=== PATIENT | female | born 1945 | race Caucasian/White ===

== ENCOUNTER → 2016-05-21 | Outpatient (CLI) | payer MEDICARE ==
--- NOTE | 2016-05-21 13:31 | ECHOS ---
DATE OF SERVICE: 05/21/2016 AGE: 71Y SEX: F HT: 64" WT: 160 lbs. Protocol Rey: Others: Stage: Dur. of Exercise: 7 minutes *Heart Rate Blood Pressure *Rest: 70 Rest: 124/75 * *Max. Achieved: 144 Maximum BP: 171/63 85% PMHR: 127 100% PMHR: 149 *METS: 8.5 mets INDICATIONS: Synthroid. MEDICATIONS: Chest pain. Precious Srinivasan is a 71-year-old female. Requested by Dr. David Salcido. Clinical Information: History of chest pain, shortness of breath, palpitations, for the last few weeks. Patient also has a history of polycythemia. Has not seen Dr. Peterson for some time with hemoglobin of 18. Resting ECG shows sinus rhythm, rate of 70 beats per minute, AR interval 0.16, QRS 0.08, normal ST-T waves. Utilizing a standard Rey protocol, a symptom limited treadmill test was performed. Patient exercised for total of 7 minutes, attained a peak heart rate of 144 beats per minute which is approximately 97% predicted maximum heart rate without any chest pain or pressure, but there was a 1-1/2 to 2 mm ( ) ST segment depression in the inferolateral leads highly suggestive of stress induced ischemia. Patient also has a questionable ( ) intraventricular septum parasternal view and in two chamber view, basal inferior to mid inferior ( ) rate mildly slightly hypokinetic compared to baseline studies. In view of borderline EKG changes and symptoms, the patient was given nitroglycerin tablets to try sublingually for pressure, advised to contact Dr. David Salcido and also advised to see Dr. Peterson for treatment of polycythemia, which may be aggravating her symptoms. ASSESSMENT: 1. Questionable borderline ( ) study involving the hypo( ) intraventricular septum and basal inferior wall, mid inferior wall and two chamber view. Associated with 1.[address]-T segment depression at peak exertion. Clinical correlation suggested. 2. Patient did not report any symptoms throughout the study. The patient has good cardiopulmonary fitness as indicated by VO2 and METs. Patient attained peak metabolic activity equivalent to 8 METs.
--- NOTE | 2016-05-21 13:35 | LTR ---
May 21, 2016 RE: Precious Srinivasan Dear Dr. David Salcido: As you recall, Precious Srinivasan has been having exertional symptoms for the last few weeks, chest heaviness and tightness, suggestive of exertional angina, as you recall, patient also has a polycythemia, though has not been treated recently by Dr. Peterson, advised to see Dr. Peterson, which may be aggravating her symptoms. The patient has borderline stress echocardiogram with 1-1/[address] segment depression in the inferolateral leads suggestive of angina without any symptoms. Clinical correlation is suggested if the patient's symptoms improved with nitroglycerin and no recurrence of symptoms after she has been treated for polycythemia ( ) Dr. Peterson, continue on medical therapy. Otherwise, may need to consider further cardiac work-up as you see fit. If you have any questions please do not hesitate to call or contact us. Sincerely, KESHAV CAMACHO MD
== END | disposition home or self-care (01) ==
LOC: RADNMMAIN 09:33
PROVIDERS: ATTEND Family Medicine
DX: R07.9 Chest pain, unspecified (principal); I10 Essential (primary) hypertension
CPT/HCPCS: 93017; 93350

== ENCOUNTER → 2016-06-09 | Outpatient (CLI) | payer MEDICARE ==
[2016-06-09 16:22] LABS: CH 30.2; CHCM 31.9; HGB 17.9 gm/dL (11.4-16.0); MCH 30.4 pg (25.0-35.0); MCV 95.1 fL (80.0-100.0); Mean Platelet Volume 6.7; RBC 5.89 m/uL (3.80-5.40); WBC 5.9 k/uL (3.8-10.6)
[2016-06-09 16:37] LABS: Calcium 9.7 mg/dL (8.4-10.2)
== END | disposition home or self-care (01) ==
LOC: LABWHC1 15:42
PROVIDERS: ATTEND Internal Medicine Interventional Cardiology
DX: I25.10 Atherosclerotic heart disease of native coronary artery without angina pectoris (principal)
CPT/HCPCS: 36415; 80048; 85027

== ENCOUNTER 2016-07-01 12:17 | Inpatient (IN) | payer MEDICARE ==
[2016-07-01] MEDS ORDERED: NITROGLYCERIN OINT 1 INCH/GM PACKET TOPICAL STA (12:56)
[2016-07-01] MEDS ORDERED: ASPIRIN 81 MG CHEW PO STA (12:56)
--- NOTE | 2016-07-01 12:59 | ED ---
General Adult HPI - General Chief complaint: Chest Pain Stated complaint: Chest Pain Time Seen by Provider: 07/01/16 12:30 Source: patient, RN notes reviewed Mode of arrival: ambulatory Limitations: no limitations - History of Present Illness Initial comments: This is a 71-year-old female who presents emergency Department complaining of chest pain. Patient states she was scheduled for a stress test in June 17 was unable to do a because her got sick. Patient states today at about 8:00 she had chest pain last about a half an hour and then returned on her way to the hospital that also lasted about half an hour. Patient states pain radiated to the left side of her neck. Patient denies any difficulty breathing or shortness of breath per patient denies any episodes of diaphoresis. Patient states she was nauseated however. Patient denies any vomiting. Patient denies abdominal pain patient denies any recent fever or chills or cough. Patient denies headache patient denies lightheadedness patient denies dizziness or near syncopal episode. Currently patient has no pain - Related Data Home Medications Medication Instructions Recorded Confirmed Aspirin [Adult Low Dose Aspirin EC] 162 mg PO HS 06/14/16 07/01/16 Atorvastatin [Lipitor] 20 mg PO HS 06/14/16 07/01/16 Levothyroxine Sodium [Synthroid] 25 mcg PO DAILY 06/14/16 07/01/16 Nitroglycerin Sl Tabs [Nitrostat] 0.4 mg PO Q5M PRN 06/14/16 07/01/16 Allergies Allergy/AdvReac Type Severity Reaction Status Date / Time chlordiazepoxide Allergy "made me Verified 07/01/16 14:07 [From Librium] very hyper" Sulfa (Sulfonamide Allergy Rash/Hives Verified 07/01/16 14:07 Antibiotics) Penicillins AdvReac Diarrhea Verified 07/01/16 14:07 Review of Systems ROS Statement: Those systems with pertinent positive or pertinent negative responses have been documented in the HPI. ROS Other: All systems not noted in ROS Statement are negative. Past Medical History Past Medical History: Thyroid Disorder Additional Past Medical History / Comment(s): polycythemia syrcuse History of Any Multi-Drug Resistant Organisms: None Reported Past Surgical History: Appendectomy Past Psychological History: No Psychological Hx Reported Smoking Status: Former smoker Past Alcohol Use History: None Reported Past Drug Use History: None Reported General Exam - General Exam Comments Initial Comments: GENERAL: Patient is well-developed and well-nourished. Patient is nontoxic and well- hydrated and is in no acute distress. ENT: Neck is soft and supple. No significant lymphadenopathy is noted. Oropharynx is clear. Moist mucous membranes. Neck has full range of motion without eliciting any pain. EYES: The sclera were anicteric and conjunctiva were pink and moist. Extraocular movements were intact and pupils were equal round and reactive to light. Eyelids were unremarkable. PULMONARY: Unlabored respirations. Good breath sounds bilaterally. No audible rales rhonchi or wheezing was noted. CARDIOVASCULAR: There is a regular rate and rhythm without any murmurs gallops or rubs. ABDOMEN: Soft and nontender with normal bowel sounds. No palpable organomegaly was noted. There is no palpable pulsatile mass. SKIN: Skin is clear with no lesions or rashes and otherwise unremarkable. NEUROLOGIC: Patient is alert and oriented x3. Cranial nerves II through XII are grossly intact. Motor and sensory are also intact. Normal speech, volume and content. Symmetrical smile. MUSCULOSKELETAL: Normal extremities with adequate strength and full range of motion. No lower extremity swelling or edema. No calf tenderness. LYMPHATICS: No significant lymphadenopathy is noted PSYCHIATRIC: Normal psychiatric evaluation. Normal interpersonal interactions appears functionally intact in deals appropriately with others. No signs of depression. No signs of anxiety. Limitations: no limitations Course Vital Signs 07/01/16 07/01/16 07/01/16 12:25 13:05 14:09 Temperature 98.4 F 98 F Pulse Rate 59 L 68 58 L Respiratory 20 18 20 Rate Blood Pressure 138/72 156/70 126/62 O2 Sat by Pulse 98 99 98 Oximetry Medical Decision Making - Medical Decision Making EKG shows sinus bradycardia 54 bpm. It was 144 QRS is 84 Q-T intervals 448 QTC is 424. Patient's EKG shows no ST segment elevation. Patient's chest x-ray is normal. Patient was chest pain-free throughout the ED stay however because of her previous stress test that was abnormal and they scheduled That she missed I started the patient heparin and admit the patient and I wrote admitting orders and consult to Dr. Gordon and consult cardiology. - Lab Data Result diagrams: 07/01/16 12:48 07/01/16 12:48 Lab Results 07/01/16 07/01/16 07/01/16 Range/Units 12:48 12:48 12:48 WBC 5.2 (3.8-10.6) k/uL RBC 5.82 H (3.80-5.40) m/uL Hgb 17.6 H (11.4-16.0) gm/dL Hct 54.1 H (34.0-46.0) % MCV 93.0 (80.0-100.0) fL MCH 30.2 (25.0-35.0) pg MCHC 32.5 (31.0-37.0) g/dL RDW 13.7 (11.5-15.5) % Plt Count 245 (150-450) k/uL Neutrophils % 60 % Lymphocytes % 28 % Monocytes % 6 % Eosinophils % 2 % Basophils % 1 % Neutrophils # 3.1 (1.3-7.7) k/uL Lymphocytes # 1.4 (1.0-4.8) k/uL Monocytes # 0.3 (0-1.0) k/uL Eosinophils # 0.1 (0-0.7) k/uL Basophils # 0.1 (0-0.2) k/uL PT (9.0-12.0) sec INR (<1.1) APTT (22.0-30.0) sec Sodium 144 (137-145) mmol/L Potassium 4.9 (3.5-5.1) mmol/L Chloride 109 H (98-107) mmol/L Carbon Dioxide 24 (22-30) mmol/L Anion Gap 11 mmol/L BUN 17 (7-17) mg/dL Creatinine 1.02 (0.52-1.04) mg/dL Est GFR (MDRD) Af Amer >60 (>60 ml/min/1.73 sqM) Est GFR (MDRD) Non-Af 53 (>60 ml/min/1.73 sqM) Glucose 88 (74-99) mg/dL Calcium 9.8 (8.4-10.2) mg/dL Magnesium 2.1 (1.6-2.3) mg/dL Total Bilirubin 0.9 (0.2-1.3) mg/dL AST 21 (14-36) U/L ALT 24 (9-52) U/L Alkaline Phosphatase 75 (38-126) U/L Total Creatine Kinase 60 (30-135) U/L CK-MB (CK-2) 0.3 (0.0-2.4) ng/mL CK-MB (CK-2) Rel Index 0.5 Troponin I <0.012 (0.000-0.034) ng/mL Total Protein 7.4 (6.3-8.2) g/dL Albumin 4.2 (3.5-5.0) g/dL 07/01/16 Range/Units 12:48 WBC (3.8-10.6) k/uL RBC (3.80-5.40) m/uL Hgb (11.4-16.0) gm/dL Hct (34.0-46.0) % MCV (80.0-100.0) fL MCH (25.0-35.0) pg MCHC (31.0-37.0) g/dL RDW (11.5-15.5) % Plt Count (150-450) k/uL Neutrophils % % Lymphocytes % % Monocytes % % Eosinophils % % Basophils % % Neutrophils # (1.3-7.7) k/uL Lymphocytes # (1.0-4.8) k/uL Monocytes # (0-1.0) k/uL Eosinophils # (0-0.7) k/uL Basophils # (0-0.2) k/uL PT 10.7 (9.0-12.0) sec INR 1.1 (<1.1) APTT 26.3 (22.0-30.0) sec Sodium (137-145) mmol/L Potassium (3.5-5.1) mmol/L Chloride (98-107) mmol/L Carbon Dioxide (22-30) mmol/L Anion Gap mmol/L BUN (7-17) mg/dL Creatinine (0.52-1.04) mg/dL Est GFR (MDRD) Af Amer (>60 ml/min/1.73 sqM) Est GFR (MDRD) Non-Af (>60 ml/min/1.73 sqM) Glucose (74-99) mg/dL Calcium (8.4-10.2) mg/dL Magnesium (1.6-2.3) mg/dL Total Bilirubin (0.2-1.3) mg/dL AST (14-36) U/L ALT (9-52) U/L Alkaline Phosphatase (38-126) U/L Total Creatine Kinase (30-135) U/L CK-MB (CK-2) (0.0-2.4) ng/mL CK-MB (CK-2) Rel Index Troponin I (0.000-0.034) ng/mL Total Protein (6.3-8.2) g/dL Albumin (3.5-5.0) g/dL Critical Care Time Critical Care Time: Yes Total Critical Care Time: 35 Disposition Clinical Impression: Unstable angina pectoris Disposition: ADMITTED IP TO THIS [facility] Time of Disposition: 14:41
[2016-07-01 13:07] LABS: Basophils # (A) 0.1 k/uL (0-0.2); Basophils % (A) 1 %; CH 30.3; CHCM 32.8; Eosinophils # (A) 0.1 k/uL (0-0.7); Eosinophils % (A) 2 %; HCT 54.1 % (34.0-46.0); HDW 2.45; HGB 17.6 gm/dL (11.4-16.0); Luc # (Auto) 0.13; Luc % (Auto) 3; Lymphocytes # (A) 1.4 k/uL (1.0-4.8); Lymphocytes % (A) 28 %; MCH 30.2 pg (25.0-35.0); MCHC 32.5 g/dL (31.0-37.0); Mean Platelet Volume 7.6; Monocytes # (A) 0.3 k/uL (0-1.0); Monocytes % (A) 6 %; Neutrophils # (A) 3.1 k/uL (1.3-7.7); Neutrophils % (A) 60 %; RBC 5.82 m/uL (3.80-5.40); RDW 13.7 % (11.5-15.5); WBC 5.2 k/uL (3.8-10.6); WBC (Perox) 5.16
[2016-07-01 13:16] LABS: INR 1.1 (<1.1); Partial Thromboplastin Time 26.3 sec (22.0-30.0); Prothrombin Time 10.7 sec (9.0-12.0)
[2016-07-01 13:17] LABS: ALT 24 U/L (9-52); AST 21 U/L (14-36); Alkaline Phosphatase 75 U/L (38-126); Anion Gap 11 mmol/L; Blood Urea Nitrogen 17 mg/dL (7-17); Calcium 9.8 mg/dL (8.4-10.2); Carbon Dioxide 24 mmol/L (22-30); Chloride 109 mmol/L (98-107); Glucose 88 mg/dL (74-99); Magnesium 2.1 mg/dL (1.6-2.3); Non-African American GFR(MDRD) 53 (>60 ml/min/1.73 sqM); Potassium 4.9 mmol/L (3.5-5.1); Sodium 144 mmol/L (137-145); Total Bilirubin 0.9 mg/dL (0.2-1.3); Total Protein 7.4 g/dL (6.3-8.2)
--- NOTE | 2016-07-01 13:20 | XR ---
EXAMINATION TYPE: XR chest 2V DATE OF EXAM: 07/01/2016 1:16 PM COMPARISON: None HISTORY: Shortness of breath TECHNIQUE: Frontal and lateral views of the chest are obtained. FINDINGS: Scattered senescent parenchymal changes noted. Hyperinflation compatible with COPD. No evidence for infiltrate. No evidence for atelectasis. Heart size is stable. Mediastinal structures are stable and grossly unremarkable. No evidence for hilar prominence. Degenerative changes dorsal spine. IMPRESSION: 1. No evidence for acute pulmonary disease.
[2016-07-01 13:30] LABS: Creatine Kinase 60 U/L (30-135)
[2016-07-01 13:42] LABS: Creatine Kinase MB 0.3 ng/mL (0.0-2.4); Troponin I <0.012 ng/mL (0.000-0.034)
[2016-07-01] MEDS ORDERED: HEPARIN SODIUM,PORCINE 5,000 UNIT/ML 1 ML VIAL IV ONE (14:10)
[2016-07-01] MEDS ORDERED: HEPARIN SODIUM,PORCINE/D5W PMX 25,000 UNIT in DEXTROSE/WATER 1 500ML.BAG IV SCH (14:15)
[2016-07-01] MEDS ORDERED: NITROGLYCERIN SL TABS 0.4 MG TAB SUBLINGUAL PRN (14:41)
[2016-07-01] MEDS: NITROGLYCERIN OINT 1 INCH/GM PACKET TOPICAL SCH ×2 (18:34→22:21)
[2016-07-01 19:55] LABS: Creatine Kinase 52 U/L (30-135)
[2016-07-01 20:08] LABS: Creatine Kinase MB 0.3 ng/mL (0.0-2.4); Troponin I <0.012 ng/mL (0.000-0.034)
[2016-07-02 00:48] LABS: Creatine Kinase 123 U/L (30-135)
[2016-07-02 00:59] LABS: Creatine Kinase MB 0.7 ng/mL (0.0-2.4); Troponin I <0.012 ng/mL (0.000-0.034)
[2016-07-02] MEDS: NITROGLYCERIN OINT 1 INCH/GM PACKET TOPICAL SCH (04:29)
[2016-07-02 06:49] LABS: Cholesterol 126 mg/dL (<200); HDL Cholesterol 48 mg/dL (40-60); Triglycerides 81 mg/dL (<150)
[2016-07-02] MEDS ORDERED: ALPRAZolam 0.5 MG TAB PO PRN (08:20)
[2016-07-02] MEDS ORDERED: ATORVASTATIN 80 MG TAB PO STA (08:20)
[2016-07-02] MEDS ORDERED: SODIUM CHLORIDE 0.9% 1,000 ML in EMPTY BAG 1 BAG IV ONE (08:20)
[2016-07-02] MEDS ORDERED: ALPRAZolam 0.25 MG TAB PO PRN (08:20)
[2016-07-02] MEDS ORDERED: NITROGLYCERIN SL TABS 0.4 MG TAB SUBLINGUAL PRN (08:20)
[2016-07-02] MEDS ORDERED: ASPIRIN 325 MG TAB PO STA (08:20)
[2016-07-02] MEDS ORDERED: LEVOTHYROXINE 25 MCG TAB PO SCH (09:00)
[2016-07-02] MEDS ORDERED: ASPIRIN 325 MG TAB PO SCH (09:00)
[2016-07-02 09:31] VITALS: RESP 18
[2016-07-02] MEDS ORDERED: SODIUM CHLORIDE 0.9% 1,000 ML IV ONE (09:46)
--- NOTE | 2016-07-02 10:18 | CONS ---
DATE OF CONSULTATION: This is a 71-year-old lady with a family history of CAD who also had a positive stress echo with an inferior and septal hypokinesia on 05/21/16. She was seen by me in the office on June 03 and I saw her along with her and her son advised coronary angiography and explained to her the rationale, risks, benefits, and options. She understood all details and wished to proceed with the procedure. However, on the day of the scheduled cardiac cath her fell ill and this was canceled. She came into the emergency room complaining of chest pressure suggestive of angina. She also had some nausea with it, but no clear-cut diaphoresis lasted almost 20 minutes. She had 2 separate episodes. She is now pain free and 3-sets of troponins are normal. EKG does not reveal any acute changes. At the time of my evaluation, she is resting comfortably without symptoms. Past medical history is remarkable for hypothyroidism and also family history of CAD. She has resting heart rate in the low 60s and was not started on a beta malou when I saw her. Medications at home include aspirin and she also takes coenzyme Q and vitamin supplements. On examination, blood pressure is 118/70, pulse rate 70 per minute, regular. HEENT: Unremarkable. Fundus was not examined by me. Neck is supple. No JVD. I do not hear a carotid bruit. There is no thyromegaly. Heart exam reveals S1 and S2 heard normally with a soft systolic murmur at left sternal border. Lungs are clear. Abdomen is soft, nontender. Lower extremities reveal normal pulses. No edema. Central nervous system is normal. EKG revealed sinus mechanism. No acute changes. There is a nondiagnostic inferior Q wave raising the possibility of prior inferior myocardial infarction, but seems unlikely. Echocardiogram performed in the office on 06/04/16 revealed normal LV size and systolic function. Stress echo performed at [facility] on 05/21/16 revealed inferior septal hypokinesia at a heart rate of nearly 97% of predicted maximal and 144 beats per minute and 7 minutes of exercise. IMPRESSION: 1. Unstable angina. 2. Abnormal stress test. 3. History of hypothyroidism. RECOMMENDATIONS: I am recommending coronary angiography. Risks, benefits, options and rationale were carefully explained to the patient. She understands all details and wishes to proceed with the procedure, which will be performed today.
[2016-07-02] MEDS ORDERED: MIDAZOLAM 2 MG/2 ML VIAL IV ONE (10:19)
[2016-07-02] MEDS ORDERED: diphenhydrAMINE 50 MG/ML 1 ML VIAL IVP ONE (10:19)
[2016-07-02] MEDS ORDERED: LIDOCAINE 2% INJ 20 MG/ML SQ ONE (10:21)
[2016-07-02] MEDS ORDERED: VERAPAMIL SYRINGE (5 MG/10 ML) INTRAARTER ONE (10:22)
[2016-07-02] MEDS ORDERED: fentaNYL (PF) 50 MCG/ML 2 ML AMP IV ONE (10:22)
[2016-07-02] MEDS ORDERED: HEPARIN SODIUM 1,000 UNIT/ML VIAL IV ONE (10:25)
[2016-07-02] MEDS ORDERED: IODIXANOL 320 MG/ML 100 ML INTRAARTER ONE (10:48)
[2016-07-02] MEDS ORDERED: MEPERIDINE 50 MG/ML SYRINGE IVP ONE (10:54)
[2016-07-02] MEDS ORDERED: RX INFO: IV CONTRAST WAS GIVEN 1 EACH MISC MISCELLANE PRN (11:03)
[2016-07-02] MEDS ORDERED: SODIUM CHLORIDE 0.9% 500 ML IV ONE (11:05)
[2016-07-02] MEDS ORDERED: SODIUM CHLORIDE 0.9% 1,000 ML IV SCH (11:15)
[2016-07-02 16:30] VITALS: BP 104/51; PULSE 75; TEMP 97.6
--- NOTE | 2016-07-02 16:47 | P.HPIM ---
History of Present Illness H&P Date: 07/01/16 Chief Complaint: chest pain this is a 71-year-old pleasant lady patient of Dr. David Sommers has underlying history of polycythemia [place] not vVera, hyperlipidemia, thyroid disorder, recently had a stress test on 11/18/2016 showing questionable borderline stress test wheeze, hypokinesia in the intraventricular septum and basal inferior wall mid inferior wall associated ST segment depression metabolic activity activity equivalent to 8 months. She was scheduled to have a stress test on 06/17/2016 however she missed that appointment as the got sick, patient was seen in emergency room secondary to chest painwhich started around 8 AM, it lasted about half an hour to about 45 minutes that radiated to the left side of the neck, patient denies any palpitations syncope lightheadedness, no shortness of breath or difficulty breathing no pleurisy, patient was subsequently seen in emergency room without any chest discomfor In emergency room EKG shows sinus bradycardia heart rate 54, no ST segment elevationtinitial set of troponin is 0.012 creatinine of 1.02hemoglobin 17.6. She was admitted with consultations to cardiology for cardiac catheterization secondary to a previous abnormal stress test and her current symptomatology of unstable angina patient was started onIV heparin and Nitropaste Review of Systems Constitutional: Reports as per HPI, Denies anorexia, Denies chills, Denies chronic headaches, Denies chronic pain, Denies daytime sleepiness, Denies fatigue, Denies fever, Denies lethargy, Denies malaise, Denies night sweats, Denies poor appetite, Denies sweats, Denies weakness, Denies weight gain, Denies weight loss Ears, nose, mouth and throat: Reports as per HPI, Denies ant. neck pain, Denies bleeding gums, Denies dental pain, Denies dysphagia, Denies epistaxis, Denies headache, Denies hoarseness, Denies mouth pain, Denies nasal congestion, Denies nasal discharge, Denies neck fullness/pressure, Denies neck lump, Denies nose pain, Denies odynophagia, Denies post-nasal drip, Denies sinus pain, Denies sinus pressure, Denies swelling in mouth, Denies swelling in throat, Denies sore throat, Denies vertigo, Denies voice changes Cardiovascular: Reports as per HPI, Reports chest pain, Denies claudication, Denies decreased exercise tolerance, Denies dyspnea on exertion, Denies edema, Denies high blood pressure, Denies irregular heart beat, Denies leg edema, Denies lightheadedness, Denies orthopnea, Denies palpitations, Denies paroxysmal nocturnal dyspnea, Denies phlebitis, Denies rapid heart beat, Denies shortness of breath, Denies syncope Respiratory: Reports as per HPI, Denies congestion, Denies cough, Denies cough with sputum, Denies dyspnea, Denies excessive sputum, Denies hemoptysis, Denies home oxygen, Denies pain, Denies pain on inspiration, Denies pleurisy, Denies respiratory infections, Denies sleep apnea, Denies snoring, Denies wheezing Gastrointestinal: Reports as per HPI, Denies abdominal pain, Denies belching, Denies bloating, Denies BRBPR, Denies change in bowel habits, Denies coffee ground emesis, Denies constipation, Denies diarrhea, Denies dyspepsia, Denies early satiety, Denies excessive gas, Denies heartburn, Denies hematemesis, Denies hematochezia, Denies indigestion, Denies jaundice, Denies lactose intolerance, Denies loss of appetite, Denies melena, Denies nausea, Denies vomiting Genitourinary: Reports as per HPI, Denies abnormal vaginal bleeding, Denies decreased libido, Denies difficulty conceiving, Denies difficulty voiding, Denies dysmenorrhea, Denies dyspareunia, Denies dysuria, Denies flank pain, Denies genital sores, Denies hematuria, Denies hot flashes, Denies incomplete emptying, Denies kidney stones, Denies menorrhagia, Denies mixed incontinence, Denies nocturia, Denies pelvic pain, Denies post void dribbling, Denies , Denies prolapse symptoms, Denies stress incontinence, Denies urge incontinence , Denies urgency, Denies urinary frequency, Denies vaginal discharge, Denies vaginal dryness, Denies vaginal itching, Denies vaginal odor Menstruation: Reports as per HPI, Reports postmenopausal, Denies amenorrhea, Denies amenorrhea on BC, Denies currently menstrual, Denies cycle < 21 days, Denies cycle > 35 days, Denies cycle variable, Denies menses 1-7 days, Denies menses 8 or > days, Denies menses variable, Denies period heavy, Denies period light, Denies period normal, Denies period spotting, Denies post hysterectomy, Denies premenarcheal Musculoskeletal: Reports as per HPI, Denies arm numbness/tingling, Denies atrophy, Denies fractures, Denies frequent falls, Denies gait dysfunction, Denies hot joints, Denies leg numbness/tingling, Denies limitation of motion, Denies loss of height, Denies low back pain, Denies morning stiffness, Denies muscle cramps, Denies muscle weakness, Denies myalgias, Denies neck pain, Denies neck stiffness, Denies prior amputations, Denies redness of joints, Denies shooting arm pain, Denies shooting leg pain Integumentary: Reports as per HPI, Denies acne, Denies boils, Denies brittle nails, Denies change in hair/nails, Denies color changes, Denies darkening of skin, Denies depigmentation, Denies dryness, Denies foot/leg ulcers, Denies growths, Denies hirsutism, Denies lesions, Denies onychomycosis, Denies pruritus , Denies rash, Denies sores, Denies striae, Denies unusual bruising, Denies wounds Neurological: Reports as per HPI, Denies aphasia, Denies ataxia, Denies balance difficulties, Denies burning pain, Denies change in mentation, Denies change in smell/taste, Denies change in speech, Denies confusion, Denies convulsions, Denies double vision, Denies gait dysfunction, Denies head injury, Denies headaches, Denies hearing difficulties, Denies lack of coordination, Denies loss of vision, Denies memory loss, Denies migraines, Denies motor disturbance, Denies numbness, Denies paralysis, Denies paresthesias, Denies seizures, Denies sensory deficit, Denies spasticity, Denies syncope, Denies tic, Denies tingling , Denies transient paralysis, Denies tremors, Denies vertigo, Denies weakness, Denies visual changes Psychiatric: Reports as per HPI, Denies anhedonia, Denies anxiety, Denies anxiety attacks, Denies change in appetite, Denies change in libido, Denies change in sleep habits, Denies confusion, Denies depression, Denies difficulty concentrating, Denies disorientation, Denies hallucinations, Denies hopelessness , Denies hypersomnia, Denies insomnia, Denies irritability, Denies memory loss, Denies mood swings, Denies paranoia, Denies sadness/tearfulness, Denies sleep disturbances, Denies suicidal ideation Endocrine: Reports as per HPI, Denies cold intolerance, Denies deepening of the voice, Denies excessive sweating, Denies excessive thirst, Denies fatigue, Denies flushing, Denies heat intolerance, Denies high blood sugars, Denies increase in ring/shoe/hat size, Denies low blood sugars, Denies nocturia, Denies palpitations, Denies polydipsia, Denies polyphagia, Denies polyuria, Denies proptosis, Denies recent glucocorticoid use, Denies thyroid mass, Denies weight change Hematologic/Lymphatic: Reports as per HPI, Denies easy bleeding, Denies easy bruising, Denies lymphadenopathy, Denies lymphedema, Denies thrombophilia Allergic/Immunologic: Denies as per HPI, Denies allergic rhinitis, Denies anaphylaxis, Denies angioedema, Denies gluten intolerance, Denies persistent infections, Denies seasonal allergies, Denies urticaria, Denies wheezing Past Medical History Past Medical History: Hyperlipidemia, Thyroid Disorder Additional Past Medical History / Comment(s): polycythemia (syrcuse NOT VERA), HYDATIDIFORM MOLE, UTI, SHINGLES 2016 History of Any Multi-Drug Resistant Organisms: None Reported Past Surgical History: Appendectomy Additional Past Surgical History / Comment(s): COLONOSCOPY Past Anesthesia/Blood Transfusion Reactions: No Reported Reaction Past Psychological History: No Psychological Hx Reported Additional Psychological History / Comment(s): PT LIVES IN OWN HOME WITH SPOUSE , SON 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 PT IS INDEPENDANT. HAS 4 STEPS INTO HOME AND BASEMENT STEPS(UNSURE HOW MANY BUT MORE THAN 5) Smoking Status: Former smoker Past Alcohol Use History: None Reported Additional Past Alcohol Use History / Comment(s): STARTED SMOKING AT AGE 16, SMOKED OFF AND ON LESS THAN 1/2 PPD, QUIT 2012 Past Drug Use History: None Reported - Past Family History Father Family Medical History: Congestive Heart Failure (CHF) Additional Family Medical History / Comment(s): HERNIA SX- GOT A STAPH INFECTION , HAD HEART VALVE SX Mother Family Medical History: Hypertension, Myocardial Infarction (GA) Additional Family Medical History / Comment(s): MOM IS ALIVE AT AGE 94 HAD AN GA AT AGE 64 Medications and Allergies Home Medications Medication Instructions Recorded Confirmed Type Aspirin [Adult Low Dose Aspirin EC] 162 mg PO HS 06/14/16 07/01/16 History Atorvastatin [Lipitor] 20 mg PO HS 06/14/16 07/01/16 History Levothyroxine Sodium [Synthroid] 25 mcg PO DAILY 06/14/16 07/01/16 History Nitroglycerin Sl Tabs [Nitrostat] 0.4 mg PO Q5M PRN 06/14/16 07/01/16 History Allergies Allergy/AdvReac Type Severity Reaction Status Date / Time chlordiazepoxide Allergy "made me Verified 07/01/16 14:07 [From Librium] very hyper" Sulfa (Sulfonamide Allergy Rash/Hives Verified 07/01/16 14:07 Antibiotics) Penicillins AdvReac Diarrhea Verified 07/01/16 14:07 Physical Exam Vitals: Vital Signs Temp Pulse Pulse Resp BP BP Pulse Ox 07/01/16 16:27 71 18 07/01/16 16:26 97.4 F L 71 18 134/92 97 07/01/16 15:44 98.4 F 56 L 18 127/56 98 Intake and Output 07/01/16 07/01/16 07/01/16 06:59 14:59 22:59 Intake Total 180 Balance 180 Intake: Oral 180 Other: Voiding Method Toilet # Voids 1 - Constitutional General appearance: average body habitus, cooperative, no acute distress - EENT Eyes: anicteric sclerae, EOMI, PERRLA, dentition normal, normal appearance ENT: hearing grossly normal, NA/AT, normal oropharynx - Neck Neck: no lymphadenopathy, normal ROM, no other, no rigidity, no stridor, no thyromegaly Thyroid: bilateral: normal size, negative: enlarged, firm - Respiratory Respiratory: bilateral: CTA, negative: diminished, dullness, rales - Cardiovascular Rhythm: regular Heart sounds: normal: S1, S2 Abnormal Heart Sounds: no systolic murmur, no diastolic murmur, no rub, no S3 Gallop, no S4 Gallop, no click, no other - Gastrointestinal General gastrointestinal: soft - Integumentary Integumentary: normal, normal turgor - Neurologic Neurologic: CNII-XII intact - Musculoskeletal Musculoskeletal: gait normal, strength equal bilaterally - Psychiatric Psychiatric: A&O x's 3, appropriate affect, intact judgment & insight Results CBC & Chem 7: 07/01/16 12:48 07/01/16 12:48 Thrombosis Risk Factor Assmnt - DVT/VTE Prophylaxis DVT/VTE Prophylaxis: Pharmacologic Prophylaxis ordered Assessment and Plan Plan: 1. Unstable angina with abnormal stress test as performed 05/21/2016, patient would need the completing workup which his cardiac catheterization she has missed this during her last scheduled visit, patient has multiple risk factors mainly polycythemia, hyperlipidemia, patient currently is on IV heparin and Nitropaste, continue Lipitormaintain aspirin 2. Polycythemia [place] not polycythemia vera, patient will be seen by Dr. Peterson to address this patient as an outpatient, 3. Hyperlipidemia on Lipitor 4. Hypothyroidism on [id number] 5. BMI 27
--- NOTE | 2016-07-02 18:12 | P.DS ---
Providers Date of admission: 07/01/16 14:41 Expected date of discharge: 07/02/16 Attending physician: Carlota Corbin [facility] Course: this is a 71-year-old pleasant lady patient of Dr. David Sommers has underlying history of polycythemia [place] not vVera, hyperlipidemia, thyroid disorder, recently had a stress test on 11/18/2016 showing questionable borderline stress test wheeze, hypokinesia in the intraventricular septum and basal inferior wall mid inferior wall associated ST segment depression metabolic activity activity equivalent to 8 months. She was scheduled to have a stress test on 06/17/2016 however she missed that appointment as the got sick, patient was seen in emergency room secondary to chest painwhich started around 8 AM, it lasted about half an hour to about 45 minutes that radiated to the left side of the neck, patient denies any palpitations syncope lightheadedness, no shortness of breath or difficulty breathing no pleurisy, patient was subsequently seen in emergency room without any chest discomfor In emergency room EKG shows sinus bradycardia heart rate 54, no ST segment elevationtinitial set of troponin is 0.012 creatinine of 1.02hemoglobin 17.6. She was admitted with consultations to cardiology for cardiac catheterization secondary to a previous abnormal stress test and her current symptomatology of unstable angina patient was started onIV heparin and Nitropaste Final Diagnosis 1. Unstable angina with abnormal stress test as performed 05/21/2016, patient would need the completing workup which his cardiac catheterization she has missed this during her last scheduled visit, patient has multiple risk factors mainly polycythemia, hyperlipidemia, patient currently is on IV heparin and Nitropaste, continue Lipitormaintain aspirin procedures: cardiac catherization, dr HIRA price , pending . preliminary no coronary stenosis 2. Polycythemia [place] not polycythemia vera, patient will be seen by Dr. Peterson to address this patient as an outpatient, 3. Hyperlipidemia on Lipitor 4. Hypothyroidism on [id number] 5. BMI 27 Discharge Medication List Aspirin [Adult Low Dose Aspirin EC] 162 mg PO HS 06/14/16 [History] Atorvastatin [Lipitor] 20 mg PO HS 06/14/16 [History] Levothyroxine Sodium [Synthroid] 25 mcg PO DAILY 06/14/16 [History] Nitroglycerin Sl Tabs [Nitrostat] 0.4 mg PO Q5M PRN 06/14/16 [History] Pertinent Studies: 07/02: cardiac cathetherization, reportedly normal, formal report pending dictation Plan - Discharge Summary Discharge Medication List Aspirin [Adult Low Dose Aspirin EC] 162 mg PO HS 06/14/16 [History] Atorvastatin [Lipitor] 20 mg PO HS 06/14/16 [History] Levothyroxine Sodium [Synthroid] 25 mcg PO DAILY 06/14/16 [History] Nitroglycerin Sl Tabs [Nitrostat] 0.4 mg PO Q5M PRN 06/14/16 [History] Follow up Appointment(s)/Referral(s): Jeniffer Price MD [STAFF PHYSICIAN] - 07/07/16 8:45 am Thomas Salcido MD [Primary Care Provider] - 07/06/16 2:30 pm Patient Instructions/Handouts: After Heart Catheterization - Pipe Stem Sawyer, Angina (DC)
--- NOTE | 2016-07-02 20:30 | CC ---
DATE OF SERVICE: 07/02/2016 PROCEDURE PERFORMED: Left heart catheterization, coronary angiography and left ventriculography. PERFORMED BY: Dr. Jakob Villaseñor. CLINICAL INFORMATION: Mrs. Precious Srinivasan is a 71-year-old lady with a history of a positive stress test and hypothyroidism and hyperlipidemia. She presented to the hospital with episode of chest pain, lasting 20 to 30 minutes without troponin elevation. Because of 2 episodes of chest pain and abnormal stress she was advised cardiac cath after due discussion regarding the risks, benefits, options and rationale. PROCEDURE NOTE: Under local anesthesia and strict aseptic precautions, a 6 Cuban introducer was placed in the right radial artery. I initially tried an Ultima one catheter, but I did not get selective injection and then I switched over to a 3.5 curved left and right Hilario catheters of 5 Cuban caliber. With this I performed selective coronary angiography and used a pigtail catheter to perform an LV gram. The catheter was taken out. The sheath was taken out and TR band applied with good hemostasis. The saturation of the fingers of the right hand was good. The patient tolerated the procedure well without complications. CARDIAC CATHETERIZATION FINDINGS : The left ventricular end-diastolic pressure was 12 mmHg without any gradient across the aortic valve. CORONARY ANGIOGRAPHY FINDINGS: RIGHT CORONARY ARTERY: Technically a very dominant vessel that has no significant obstructive disease bifurcates distally into a large PDA is smaller PLV, both of which supply a sizable amount of myocardium. There is no significant disease in the dominant RCA. The PDA is a very large caliber, large distribution vessel, PLV appears to be smaller. LEFT MAIN CORONARY ARTERY: A short, patent, disease-free vessel that bifurcates into LAD and circumflex. LEFT ANTERIOR DESCENDING CORONARY ARTERY: This vessel in the proximal portion has an eccentric 35% stenosis after which the caliber improves and gives off septal branches and in the midportion it gives off a good-sized diagonal branch in both of these vessels towards the apex supplying a sizable amount of myocardium. There is no significant disease in the entire LAD system other than the 35% proximal narrowing and this also appears to be a smooth narrowing. The distal branches of the LAD system are free of significant disease. In the distal one fourth, the LAD bifurcates into a diagonal and continuation of LAD both of which are free of significant disease. LEFT POSTERIOR CIRCUMFLEX CORONARY ARTERY: Technically a nondominant vessel that is of a good caliber and distribution gives off a large obtuse marginal branches and a groove branch, all of these are free of significant disease. Supplies sizable amount of myocardium and there is no significant disease in the entire circumflex system. LEFT VENTRICULOGRAM: This was performed in 30 degree FRIEDMAN projection, revealed left ventricle is of a normal size with good systolic function. Ejection fraction of 60% without mitral regurgitation. FINAL IMPRESSION: This patient has a right dominant system. A 35% proximal LAD lesion is noted, which is not significant. The circumflex and RCA are large and free of significant disease. The right coronary is dominant. Filling pressures are normal. Ejection fraction of 60%. RECOMMENDATIONS: Findings were discussed with the patient and her daughter. She can be discharged later on today and we will continue the same home medications including aspirin 81 mg daily, atorvastatin 20 mg daily and Synthroid as advised by her primary care physician. I will see her in the office on July 07 at 8:45 a.m. The findings were discussed with the patient and family. Discharge instructions were given. Her radial site will be watched closely and she will be discharged later this evening around 7:00 p.m. if she is stable.
--- NOTE | 2016-07-02 20:32 | LTR ---
July 02, 2016 RE: Precious Srinivasan Dear Dr. Salcido: Thank you for the opportunity to participate in the care of Mrs. Precious Srinivasan. I am pleased to report to you that she does not have any significant obstructive coronary artery disease and LV systolic function is well preserved. Findings were discussed with the patient and daughter and she will be discharged later on today if she remains stable and I will see her in the office next week. Thank you for your referral and please call for questions. With kindest regards, Sincerely yours, JULISA CAMACHO MD
[2016-07-02] MEDS ORDERED: ASPIRIN 81 MG CHEW PO SCH (21:00)
[2016-07-03] MEDS ORDERED: ASPIRIN 325 MG TAB PO SCH (09:00)
[2016-07-03] MEDS ORDERED: LEVOTHYROXINE 25 MCG TAB PO SCH (09:00)
[2016-07-03] MEDS ORDERED: ATORVASTATIN 20 MG TAB PO SCH (21:00)
== END 2016-07-02 19:39 | disposition home or self-care (01) | DRG 287 ==
LOC: EC 12:17 → 6SEL 14:41
PROVIDERS: ADMIT Family Medicine; ATTEND Family Medicine
PROC: B2111ZZ Fluoroscopy of Multiple Coronary Arteries using Low Osmolar Contrast (ICD-10-PCS; 2016-07-02)
PROC: B2151ZZ Fluoroscopy of Left Heart using Low Osmolar Contrast (ICD-10-PCS; 2016-07-02)
PROC: 4A023N7 Measurement of Cardiac Sampling and Pressure, Left Heart, Percutaneous Approach (ICD-10-PCS; principal; 2016-07-02 09:30)
DX: I25.110 Atherosclerotic heart disease of native coronary artery with unstable angina pectoris (principal); D75.1 Secondary polycythemia; E78.5 Hyperlipidemia, unspecified; E03.9 Hypothyroidism, unspecified; Z87.891 Personal history of nicotine dependence; Z79.82 Long term (current) use of aspirin; Z79.899 Other long term (current) drug therapy; Z82.49 Family history of ischemic heart disease and other diseases of the circulatory system
CPT/HCPCS: 36415; 71020; 80053; 80061; 82550; 82553; 83735; 84484; 85025; 85610; 85730; 93005; 93458; 96376; 99291

== ENCOUNTER → 2018-01-12 | Outpatient (CLI) | payer MEDICARE ==
--- NOTE | 2018-01-12 15:02 | MM ---
Reason for exam: clinical finding. Last mammogram was performed 2 years and 8 months ago. History: Patient is postmenopausal and history of other cancer. Indicated problem(s): pain in the left breast. Physical Findings: Nurse did not find any significant physical abnormalities on exam. MG 3D Diag Mammo W/Cad SHAYY Bilateral CC and MLO view(s) were taken. Prior study comparison: May 23, 2015, bilateral MG 3d screening mammo w/cad. April 04, 2014, bilateral MG screening mammo w CAD. There are scattered fibroglandular densities. There is no discrete abnormality. These results were verbally communicated with the patient and result sheet given to the patient on 01/12/18. ASSESSMENT: Negative, BI-RAD 1 RECOMMENDATION: Routine screening mammogram of both breasts in 1 year.
== END | disposition home or self-care (01) ==
LOC: RADMAMWWP 14:01
PROVIDERS: ATTEND Family Medicine
DX: N64.4 Mastodynia (principal); N64.52 Nipple discharge
CPT/HCPCS: 77066; G0279; 77062

== ENCOUNTER → 2019-01-17 | Outpatient (CLI) | payer MEDICARE ==
[2019-01-17 08:41] VITALS: BP 135/69; PULSE 63; RESP 18; TEMP 97.9; BMI 29.2
--- NOTE | 2019-01-17 09:39 | P.HPOB ---
History of Present Illness H&P Date: 01/17/19 Chief Complaint: The patient is here for her routine gynecologic exam and ma mmogram. This is a 73-year-old with an LMP of 1998. The patient is here to establish with this office. She states that has been more than 5 years since her last pelvic exam. She states she believes her left breast has gotten larger over the past year. About 1 year ago she noticed a slight dimpling in the left breast and had a mammogram which was benign. She has not felt any masses. She does believe she has gained about 13 pounds over the last year and attributes this to not eating properly at times. She is otherwise without complaints and denies any postmenopausal bleeding. She has never taken hormone replacement therapy. Review of Systems She has gained about 13 pounds or the past year. She denies respiratory, cardiac and G.I. problems. She denies maltreatment or problems with falling. : she denies any significant problems with urinary leakage. Past Medical History Past Medical History: Hyperlipidemia, Thyroid Disorder Additional Past Medical History / Comment(s): Hypothyroidism. Polycythemia (syrcuse NOT VERA). Shingles 2016. Osteopenia. PAST STAPLE LASTER HISTORY: She has no history of STDs. HYDATIDIFORM MOLE many years ago. History of Any Multi-Drug Resistant Organisms: None Reported Past Surgical History: Appendectomy Additional Past Surgical History / Comment(s): COLONOSCOPY 2010(2nd, next after 10 yrs). D&C. 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 PT IS INDEPENDANT. HAS 4 STEPS INTO HOME AND BASEMENT STEPS(UNSURE HOW MANY BUT MORE THAN 5) Smoking Status: Former smoker Past Alcohol Use History: None Reported Additional Past Alcohol Use History / Comment(s): STARTED SMOKING AT AGE 16, SMOKED OFF AND ON LESS THAN 1/2 PPD, QUIT 2012 Past Drug Use History: None Reported Additional History: She has been since 1970 and is retired. - Past Family History Father Family Medical History: Cancer Additional Family Medical History / Comment(s): LYMPHOMA. Paternal uncle had lymphoma and another uncle had pancreatic cancer. A Niece has breast cancer. Sister(s) Family Medical History: Cancer Additional Family Medical History / Comment(s): PANCREATIC CA Mother Family Medical History: Hypertension, Myocardial Infarction ([place]) Additional Family Medical History / Comment(s): MOM IS ALIVE AT AGE 94 HAD AN IL AT AGE 64 Medications and Allergies Home Medications Medication Instructions Recorded Confirmed Type Aspirin [Adult Low Dose Aspirin EC] 81 mg PO HS 06/14/16 01/17/19 History Levothyroxine Sodium [Synthroid] 25 mcg PO DAILY 06/14/16 01/17/19 History Multivitamin [Multivitamins Adult 1 each PO DAILY 01/17/19 01/17/19 History Gummies] Occuvite 1 tab PO DAILY 01/17/19 01/17/19 History Allergies Allergy/AdvReac Type Severity Reaction Status Date / Time chlordiazepoxide Allergy "made me Verified 01/17/19 08:42 [From Librium] very hyper" Sulfa (Sulfonamide Allergy Rash/Hives Verified 01/17/19 08:42 Antibiotics) aspirin AdvReac Nausea Unverified 01/17/19 08:42 Penicillins AdvReac Diarrhea Verified 01/17/19 08:42 Exam Vital Signs Temp Pulse Resp BP Pulse Ox 01/17/19 08:37 97.9 F 63 18 135/69 97 Intake and Output 01/16/19 01/17/19 01/17/19 22:59 06:59 14:59 Other: Weight 77.111 kg Height 5'4", weight 170 pounds, BMI 29.2. This is a well-developed well-nourished white female who is alert and oriented times 3 in no acute distress. HEENT: Within normal limits. NECK: Supple without mass or thyromegaly. CHEST AND LUNGS: Clear to auscultation. HEART: Regular rate and rhythm. BREASTS: Are without mass or discharge. The breasts are normal to inspection. No nipple inversion or dimpling is noted. There is no nipple discharge. There was no significant size difference between the 2 breasts noted. AXILLARY EXAM: Negative for adenopathy. BACK: Negative for CVA tenderness. ABDOMEN: Soft, nontender, without palpable masses. PELVIC EXAM: Normal external genitalia with mild atrophy. Cervix and vagina appear normal with mild atrophy. There is no unusual discharge. There is no evidence of prolapse. The uterus is midposition, nongravid size and nontender. There are no palpable adnexal masses or tenderness. RECTAL EXAM: rectovaginal exam is negative for mass or tenderness and is negative for occult blood. EXTREMITIES: Nontender. IMPRESSION: 1. 73-year-old menopausal female with normal gynecologic exam. 2. The patient subjectively feels the left breast his grown during the past year with no significant physical findings at this time. This may be a results from general weight gain since the patient believes she has gained about 13 pounds over the last year. 3. History of osteopenia. PLAN: 1. Pap smear was performed. 2. Self breast awareness was discussed with the patient. 3. Screening mammogram will be done today. 4. Osteoporosis prevention was discussed. I have stressed the importance of adequate calcium, vitamin D and regular exercise. Recommended amounts of calcium and vitamin D were also discussed. I have recommended repeating bone density testing since her last one was on 05/23/2015 and showed osteopenia. The order slip was given to the patient for this. 5. She states she does not get flu shots in the fall. I have recommended that she reconsider this. 6. The patient was advised to return in 1-2 years for her well woman examination.
--- NOTE | 2019-01-18 08:47 | MM ---
Reason for exam: screening (asymptomatic). Last mammogram was performed 1 year ago. History: Patient is postmenopausal and history of other cancer. Physical Findings: A clinical breast exam by your physician is recommended on an annual basis and results should be correlated with mammographic findings. MG 3D Screening Mammo W/Cad Bilateral CC and MLO view(s) were taken. Prior study comparison: January 12, 2018, bilateral MG 3d diag mammo w/cad SHAYY. May 23, 2015, bilateral MG 3d screening mammo w/cad. There are scattered fibroglandular densities. There is no discrete abnormality. No significant changes when compared with prior studies. ASSESSMENT: Negative, BI-RAD 1 RECOMMENDATION: Routine screening mammogram of both breasts in 1 year.
== END | disposition home or self-care (01) ==
LOC: WWCWWP 08:21
PROVIDERS: ATTEND Obstetrics & Gynecology
DX: Z12.31 Encounter for screening mammogram for malignant neoplasm of breast (principal)
CPT/HCPCS: 77063; 77067

== ENCOUNTER → 2019-01-24 | Outpatient (CLI) | payer MEDICARE ==
--- NOTE | 2019-01-24 16:48 | BD ---
EXAMINATION TYPE: Axial Bone Density DATE OF EXAM: 01/24/2019 COMPARISON: NONE CLINICAL HISTORY: Postmenopausal state Height: 64 Weight: 170.6 FRAX RISK QUESTIONS: Alcohol (3 or more units per day): no Family History (Parent hip fracture): no Glucocorticoids (More than 3mos): no (Ex: prednisone, prednisolone, methylprednisolone, dexamethasone, and hydrocortisone). History of Fracture in Adulthood: no Secondary Osteoporosis: 1. Type 1 Diabetes: no 2. Hyperthyroidism: no 3. Menopause before 45: no 4. Malnutrition: no 5. Chronic liver disease: no Rheumatoid Arthritis: no Current Tobacco Use: no RISK FACTORS HISTORY OF: Family History of Osteoporosis: no Active: yes Diet low in dairy products/other sources of calcium: yes Postmenopausal woman: 1998 Lost more than 2 inches in height since high school: no MEDICATIONS: Thyroid Medications: synthroid How Long: long time Additional History: EXAM MEASUREMENTS: Bone mineral densitometry was performed using the [employer]. Bone mineral density as measured about the Lumbar spine is: ----- L1-L4(G/cm2): 1.142 T Score Values are as follows: ----- L2: -0.6 ----- L3: 0.4 ----- L4: -0.6 ----- L1-L4: -0.3 Bone mineral density has: increased 2.5 % since study of: 03.23.2016 Bone mineral density about the R hip (g/cm2): 0.776 Bone mineral density about the L hip (g/cm2): 0.757 T Score values are as follows: -----R Neck: -1.9 -----L Neck: -2.0 -----R Total: -1.3 -----L Total: -1.7 Bone mineral density has: increased 1.4 % since study of: 03.23.2016 IMPRESSION: Osteopenia (T Score between -2.5 and -1). There is slightly increased risk of fracture and the patient may be considered for treatment. Re-Screen 2-5 years. NOTE: T-SCORE=SD OF THE YOUNG ADULT MEAN.
--- NOTE | 2019-01-30 09:34 | P.PN ---
Progress Note - Text Progress Note Date: 01/30/19 OUTPATIENT FOLLOW-UP NOTE TEST(S)/RESULTS: Bone density done on 01/24/2019 shows stable osteopenia. METHOD OF NOTIFICATION: A message with this result was left on the patient's voicemail. PATIENT COMMENTS: [] DIAGNOSIS: Stable osteopenia DISCUSSION: I have stressed the importance of getting adequate calcium, vitamin D, and regular exercise. PLAN: We will plan on repeating the bone density testing in 2-3 years. The patient was advised to return in 1-2 years for her well woman examination.
== END | disposition home or self-care (01) ==
LOC: RADBDWWP 10:28
PROVIDERS: ATTEND Obstetrics & Gynecology
DX: M85.80 Other specified disorders of bone density and structure, unspecified site (principal); Z78.0 Asymptomatic menopausal state
CPT/HCPCS: 77080

== ENCOUNTER → 2019-03-01 | Outpatient (CLI) | payer MEDICARE ==
[2019-03-01 17:07] LABS: African American GFR (CKD) 57.3 (60.0-200.0); Albumin 4.3 g/dL (3.80-4.90); Albumin/Globulin Ratio 2.15 (1.60-3.17); Anion Gap 9.1 mmol/L (4.00-12.00); BUN/Creat Ratio 25.45 Ratio (12.00-20.00); Calcium 9.4 mg/dL (8.7-10.3); Carbon Dioxide 25.9 mmol/L (21.6-31.8); Non-African American GFR(CKD) 49.4 (60.0-200.0); Potassium 4.6 mmol/L (3.5-5.5); Total Bilirubin 0.8 mg/dL (0.2-1.2); Total Protein 6.3 g/dL (6.2-8.2)
[2019-03-01 17:16] LABS: Prolactin 6.1 ng/mL (2.8-29.2)
== END | disposition home or self-care (01) ==
LOC: LABWHC1 12:04
PROVIDERS: ATTEND Internal Medicine Endocrinology, Diabetes & Metabolism
DX: R53.83 Other fatigue (principal)
CPT/HCPCS: 36415; 80053; 82024; 82533; 82607; 84146; 84443

== ENCOUNTER → 2019-05-03 | Outpatient (CLI) | payer MEDICARE | END | disposition home or self-care (01) | LOC: LABWHC1 12:20 | PROVIDERS: ATTEND Internal Medicine Endocrinology, Diabetes & Metabolism | DX: E03.8 Other specified hypothyroidism (principal) | CPT/HCPCS: 36415; 84443 ==

== ENCOUNTER → 2021-08-21 | Outpatient (CLI) | payer MEDICARE ==
--- NOTE | 2021-08-24 11:24 | MM ---
Reason for exam: screening (asymptomatic). Last mammogram was performed 2 years and 7 months ago. History: Patient is postmenopausal and history of other cancer. Physical Findings: A clinical breast exam by your physician is recommended on an annual basis and results should be correlated with mammographic findings. MG 3D Screening Mammo W/Cad Bilateral CC and MLO view(s) were taken. Prior study comparison: January 17, 2019, bilateral MG 3d screening mammo w/cad. January 12, 2018, bilateral MG 3d diag mammo w/cad SHAYY. There are scattered fibroglandular densities. No significant changes when compared with prior studies. ASSESSMENT: Benign, BI-RAD 2 RECOMMENDATION: Routine screening mammogram of both breasts in 1 year.
== END | disposition home or self-care (01) ==
LOC: RADMAMWWP 14:16
PROVIDERS: ATTEND Family Medicine
DX: Z12.31 Encounter for screening mammogram for malignant neoplasm of breast (principal); Z78.0 Asymptomatic menopausal state
CPT/HCPCS: 77063; 77067

== ENCOUNTER → 2022-07-26 | Outpatient (CLI) | payer MEDICARE ==
--- NOTE | 2022-07-27 12:43 | MR ---
EXAMINATION TYPE: MR iac wo/w con DATE OF EXAM: 07/26/2022 2:57 PM CLINICAL INDICATION:Female, 77 years old with history of H91.90 HEARING LOSS; COMPARISON: None TECHNIQUE: Multi planar, multi sequence imaging was performed through the brain. Specialized thin s equences were obtained through the internal auditory canals. Pre-and post gadolinium sequences were obtained. MR contrast: IV Contrast: 7.5 cc Gadavist FINDINGS: The [place]-white junctions, ventricular system, and cisterns appear unremarkable. Diffuse scattered f oci of high T2 signal intensity are seen within the periventricular white matter. Midline structures show no abnormality. Diffusion-weighted imaging shows no evidence of restricted diffusion. The suscep tibility weighted images demonstrate foci within the cerebellar hemispheres micro-hemorrhage. The bone marrow signal is within normal limits. Paranasal sinuses and mastoid air cells: Mild scattered paranasal sinus disease. Visualized orbits: Orbital contents are intact. After administration of gadolinium, no abnormal enhancement is seen. The internal auditory canal sequences demonstrate no significant irregularity. The 7th cranial nerve s, 8 cranial nerves, and cerebellar pontine angles appear unremarkable. After the administration mireille olinium, no abnormal enhancement is seen within the internal auditory canals. Vascular loop: None. IMPRESSION: 1. No evidence of intracranial mass nor acute/subacute CVA. 2. No evidence of internal auditory canal abnormality. 3. Few Nonspecific white matter changes, likely secondary to small vessel ischemic disease.
== END | disposition home or self-care (01) ==
LOC: RADMRIMAIN 14:00
PROVIDERS: ATTEND Otolaryngology
DX: H91.91 Unspecified hearing loss, right ear (principal); R90.82 White matter disease, unspecified
CPT/HCPCS: 70553; A9585

== ENCOUNTER → 2022-12-22 | Outpatient (CLI) | payer MEDICARE ==
--- NOTE | 2022-12-22 13:37 | CT ---
EXAMINATION TYPE: CT chest wo con DATE OF EXAM: 12/22/2022 COMPARISON: HISTORY: Chest pain and abnormal EKG. CT DLP: 251.2 mGycm. Automated Exposure Control for Dose Reduction was Utilized. TECHNIQUE: CT scan of the thorax is performed without IV contrast. FINDINGS: LUNGS: tracheobronchial tree is patent. 3 mm nodule superior segment left upper lobe axial image 27 a dditional groundglass 5 mm nodule seen within the bilateral lower lobes. Mild emphysematous changes. Subsegmental scarring or atelectasis lung bases. No pneumothorax or overt failure. No focal pneumonia . Calcified granuloma left upper lobe. MEDIASTINUM: Lack of IV contrast is noted to limit evaluation for mediastinal and especially hilar ad enopathy. There are no definitive greater than 1 cm hilar or mediastinal lymph nodes. Ascending aorta measures approximately 3.9 cm near the aortic root. Mild coronary artery calcification. Mild atheros clerotic change aorta. OTHER: Small hiatal hernia. Hypertrophic and degenerative changes of the spine. IMPRESSION: 1. Mild coronary artery calcification. 2. There are multiple sub-5 mm nodules largest is seen in the left upper lobe appears calcified and c ompatible with granuloma. Additional multiple noncalcified bilateral sub-5 mm nodules are too small t o characterize but likely benign. Recommend 12 month low dose screening CT for further evaluation. 3. 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
--- NOTE | 2022-12-23 18:43 | CA ---
Transthoracic Echo Report Name: Precious Srinivasan Age: 77 Gender: F : 1945 Exam Date: 12/22/2022 13:24 Exam Location: [place] [facility] Ht (in): 64 Wt (lb): 159 Ordering Physician: Preet Salcido MD Attending/Referring Phys: International Logistics Analyst Kirsten Dunn [facility] Procedure CPT: Indications: R07.89 chest pain, R94.31 abn ekg Cardiac Hx: Technical Quality: Contrast 1: Total Dose (mL): Contrast 2: Total Dose (mL): MEASUREMENTS (Male / Female) Normal Values 2D ECHO LV Diastolic Diameter PLAX 4.9 cm 4.2 - 5.9 / 3.9 - 5.3 cm LV Systolic Diameter PLAX 3.3 cm IVS Diastolic Thickness 0.7 cm 0.6 - 1.0 / 0.6 - 0.9 cm LVPW Diastolic Thickness 0.7 cm 0.6 - 1.0 / 0.6 - 0.9 cm LV Relative Wall Thickness 0.3 Aortic Root Diameter 3.6 cm Ascending Aorta Diameter 3.6 cm M-MODE Aortic Root Diameter MM 3.1 cm LA Systolic Diameter MM 3.6 cm LA Ao Ratio MM 1.2 AV Cusp Separation MM 1.9 cm DOPPLER AV Peak Velocity 143.5 cm/s AV Peak Gradient 8.2 mmHg AV Mean Velocity 97.7 cm/s AV Mean Gradient 4.3 mmHg AV Velocity Time Integral 27.4 cm AI Peak Velocity 331.4 cm/s AI Peak Gradient 43.9 mmHg AI Pressure Half Time 559.9 ms LVOT Peak Velocity 114.8 cm/s LVOT Peak Gradient 5.3 mmHg LVOT Velocity Time Integral 21.8 cm Mitral E Point Velocity 68.8 cm/s Mitral A Point Velocity 98.4 cm/s Mitral E to A Ratio 0.7 MV Deceleration Time 246.7 ms LV E' Lateral Velocity 6.1 cm/s Mitral E to LV E' Lateral Ratio 11.2 LV E' Septal Velocity 6.8 cm/s Mitral E to LV E' Septal Ratio 10.1 TR Peak Velocity 266.4 cm/s TR Peak Gradient 28.4 mmHg Right Atrial Pressure 8.0 mmHg Pulmonary Artery Systolic Pressu 36.4 mmHg Right Ventricular Systolic Press 36.4 mmHg FINDINGS Left Ventricle Normal Left ventricular size, wall thickness, systolic function with no obvious regional wall motion abnormalities. Left ventricular ejection fraction is estimated at 55-60%. Right Ventricle Right ventricle at upper limits of normal. Mild pulmonary hypertension. Right Atrium Normal right atrial size. Left Atrium Normal left atrial size. Mitral Valve Structurally normal mitral valve. Trace mitral regurgitation. Aortic Valve Trileaflet aortic valve. Mild aortic regurgitation. Tricuspid Valve Structurally normal tricuspid valve. [id number] tricuspid regurgitation. Pulmonic Valve Pulmonic valve not well visualized. Pericardium No pericardial effusion. Aorta Mild aortic dilatation at the level of the sinuses of valsalva (root). Ascending aorta at upper limits of normal. CONCLUSIONS Normal LV size and systolic function Mildly dilated aortic root and sinus of Valsalva Previewed by: Dr. Peter Singh MD (Electronically Signed) Final Date: 23 December 2022 18:42
== END | disposition home or self-care (01) ==
LOC: RADCTMAIN 12:28
PROVIDERS: ATTEND Family Medicine
DX: I25.10 Atherosclerotic heart disease of native coronary artery without angina pectoris (principal); I77.811 Abdominal aortic ectasia; R91.8 Other nonspecific abnormal finding of lung field; R94.31 Abnormal electrocardiogram [ECG] [EKG]; R07.89 Other chest pain
CPT/HCPCS: 71250; 93306